=== PATIENT | female | born 1990 | race Caucasian/White ===

== ENCOUNTER 2025-03-31 14:10 | Emergency (ER) | payer MEDICAID ==
[~2025-03-31] VITALS: Ht 154.9 cm; Wt 70.8 kg
[2025-03-31] MEDS ORDERED: ACETAMINOPHEN ES 500 MG TABLET ONE (15:00)
[2025-03-31] MEDS ORDERED: IBUPROFEN 400 MG TABLET ONE (15:01)
[2025-03-31] MEDS: IBUPROFEN 400 MG TABLET PO ONE (15:03)
[2025-03-31] MEDS: ACETAMINOPHEN ES 500 MG TABLET PO ONE (15:03)
[2025-03-31] MEDS ORDERED: ACET-2030 PO (15:07)
[2025-03-31] MEDS ORDERED: KETO10TA2 PO (15:07)
[2025-03-31 15:20] VITALS: BP 135/78; TEMP 98.4; O2SAT 98
== END 2025-03-31 15:22 | disposition home or self-care (01) ==
LOC: ER 14:16
DX: M94.0 Chondrocostal junction syndrome [Tietze] (principal); R07.89 Other chest pain
CPT/HCPCS: 71045-TC